=== PATIENT | male | born 1955 | race Caucasian/White ===

== ENCOUNTER 2018-03-10 08:56 | Day surgery (SDC) | payer OTHER ==
[2018-03-10] MEDS: MOXIFLOXACIN 0.5% 3 ML OPH OPER (10:54)
[2018-03-10] MEDS: PROPARACAINE 0.5% 15 ML OPH OPER (10:55)
[2018-03-10] MEDS: PREDNISOLONE ACET 1% 5 ML OPH OPER (10:55)
[2018-03-10] MEDS: TROPICAMIDE 1% 3 ML OPH OPER (10:55)
[2018-03-10] MEDS: PHENYLephrine 2.5% 15 ML OPH OPER (10:55)
[2018-03-10] MEDS ORDERED: SOD CHLORIDE 0.9% 1,000 ML IV (11:00)
[2018-03-10] MEDS ORDERED: hydrALAzine 20 MG INJ (12:14)
[2018-03-10] MEDS: LIDOCAINE 1% (MPF) 10 ML INJ INJ (12:15)
[2018-03-10] MEDS ORDERED: LIDOCAINE 1% (MPF) 10 ML INJ (12:18)
[2018-03-10] MEDS ORDERED: FENTAnyl 50 MCG/ML VIAL (12:31)
[2018-03-10] MEDS: TOBRAMYCIN 0.3% 3.5 GM OPH OINT RIGHT EYE (12:41)
[2018-03-10] MEDS ORDERED: ACETAMINOPHEN 325 MG TAB PO (14:00)
== END 2018-03-10 14:40 | disposition home or self-care (01) ==
LOC: SDS 08:56
DX: H25.11 Age-related nuclear cataract, right eye (principal); I10 Essential (primary) hypertension; E78.5 Hyperlipidemia, unspecified; K29.70 Gastritis, unspecified, without bleeding
CPT/HCPCS: 66984